=== PATIENT | male | born 1960 ===

== ENCOUNTER 2018-07-11 15:23 | Emergency (ER) | payer OTHER ==
[2018-07-11 15:38] VITALS: TEMP 98
[2018-07-11] MEDS ORDERED: Lidocaine 2% Inj (20ml) SC ONE (16:07)
[2018-07-11] MEDS ORDERED: Tdap Vaccine 0.5 ml Vial (10-64 yrs) IM ONE ×2 (16:10→17:12)
--- NOTE | 2018-07-11 16:11 | ED PDOC ---
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 Pt reports that he crushed his thumb under an instrument that hammers pieces of vehicles back together. (+) pain. Pt able to fully bend and extend at IP joint and MCP joint. Tetanus is unknown Past Medical History Reviewed: Nursing Documentation, Vital Signs Vital Signs: Last Vital Signs Temp 98.0 F 07/11/18 15:36 Pulse 101 H 07/11/18 15:36 Resp 20 07/11/18 15:36 BP 185/129 H 07/11/18 15:36 Pulse Ox 94 L 07/11/18 15:36 - Medical History PMH: No Chronic Diseases - Surgical History Surgical History: No Surg Hx - Family History Family History: States: No Known Family Hx - Living Arrangements Living Arrangements: With Family - Social History Ex-Smoker (has not smoked in the last 12 months): No Alcohol: Social Drugs: Denies - Immunization History Hx Tetanus Toxoid Vaccination: No Hx Influenza Vaccination: No Hx Pneumococcal Vaccination: No - Home Medications Home Medications: Ambulatory Orders Medication Instructions Recorded Cephalexin [cephalexin] 500 mg PO BID #14 07/11/18 oxyCODONE/Acetaminophen [Percocet 1 ea PO Q6 PRN #10 tab 07/11/18 5/325 mg Tab] - Allergies Allergies/Adverse Reactions: Allergies Allergy/AdvReac Type Severity Reaction Status Date / Time No Known Allergies Allergy Verified 07/11/18 15:37 Review of Systems ROS Statement: Except As Marked, All Systems Reviewed And Found Negative Musculoskeletal: Positive for: Other (finger crush injury) Skin: Positive for: Other (laceration) Physical Exam - Reviewed Nursing Documentation Reviewed: Yes Vital Signs Reviewed: Yes - Physical Exam Appears: Positive for: Well, Non-toxic, No Acute Distress Head Exam: Positive for: ATRAUMATIC, NORMAL INSPECTION, NORMOCEPHALIC Skin: Positive for: Normal Color, Warm, DRY Eye Exam: Positive for: EOMI, Normal appearance, PERRL ENT: Positive for: Normal ENT Inspection Neck: Positive for: Normal, Painless ROM Cardiovascular/Chest: Positive for: Regular Rate, Rhythm Respiratory: Positive for: CNT, Normal Breath Sounds Gastrointestinal/Abdominal: Positive for: Normal Exam, Soft Extremity: Positive for: Other (left thumb: (+) crush injury, (+) nail plate intact and above cuticle, skin macerated surrounding nail. (+) active bleed. ) Neurologic/Psych: Positive for: Alert, Oriented - Laboratory Results Result Diagrams: 07/11/18 17:12 07/11/18 17:12 - ECG O2 Sat by Pulse Oximetry: 94 Medical Decision Making Medical Decision Making: IV access established and treatment initiated with IV Ancef after Digital block applied for pain. XR: (+) Fracture noted Site irrigated by sba underwriter. case discussed with Hand on-call, Dr Zuñiga, who advised suture repaired to the laceration and bulky dressing on-top. Pt should contact office on Saturday for follow up. Pt made aware of plan and demonstrated full understanding. Disposition - Clinical Impression Clinical Impression: Crush injury, Finger fracture - Patient ED Disposition Is Patient to be Admitted: No - Disposition Referrals: Any Gasca MD [Staff Provider] - Disposition: Routine/Home Disposition Time: 18:38 Condition: STABLE Prescriptions: Cephalexin [cephalexin] 500 mg PO BID #14 oxyCODONE/Acetaminophen [Percocet 5/325 mg Tab] 1 ea PO Q6 PRN #10 tab PRN Reason: Pain, Severe (8-10) Instructions: Crush Injury (DC), Finger Fracture Forms: [facility] (Polish) Laceration - Laceration Repair No standard instances Wound Length (In cm): 5 Description Of Wound: Stellate, Contused Tissue, Contaminated With: (oil) Wound Cleansed With: Sterile Saline Anesthesia: Lidocaine 2% Wound Examination: Irrigated With Saline Wound Debridement/Revision: Wound Debrided Wound Closure: Suture Suture Technique And Material Used: Nylon (5-0) Wound Complexity: Complex
[2018-07-11] MEDS ORDERED: Lidocaine 2% Inj (20ml) ONE (16:13)
[2018-07-11 17:18] LABS: BASO # 0.1 K/uL (0.0-0.2); BASO % 0.7 % (0.0-2.0); EOS # 0.6 K/uL (0.0-0.7); EOS % 6.5 % (0.0-4.0); LYMPH # 1.4 K/uL (1.0-4.3); LYMPH % 16.6 % (20.0-40.0); MEAN CELL VOLUME 84.1 fl (80.0-94.0); MEAN CORPUSCULAR HEMOGLOBIN 28.7 pg (27.0-31.0); MEAN CORPUSCULAR HGB CONC 34.1 g/dL (33.0-37.0); MEAN PLATELET VOLUME 8.8 fl (7.2-11.7); MONO # 0.6 K/uL (0.0-0.8); MONO % 7.1 % (0.0-10.0); NEUT # 5.8 K/uL (1.8-7.0); NEUT % 69.1 % (50.0-75.0); NRBC % 0.1 % (0.0-0.0); RBC 5.59 Mil/uL (4.40-5.90); RED CELL DISTRIBUTION WIDTH 13.8 % (11.5-14.5); WHITE BLOOD COUNT 8.5 K/uL (4.8-10.8)
[2018-07-11 17:25] LABS: ALB/GLOB RATIO 1.3 (1.0-2.1); ALBUMIN 4.7 g/dL (3.5-5.0); ALT/SGPT 50 U/L (21-72); AST/SGOT 31 U/L (17-59); BLOOD UREA NITROGEN 13 mg/dl (9-20); CALCIUM 10.2 mg/dL (8.4-10.2); GFR NON-AFRICAN AMERICAN > 60
--- NOTE | 2018-07-11 17:51 | RAD ---
Date of service: 07/11/2018 PROCEDURE: Left Thumb radiographs. HISTORY: crush injury COMPARISON: None. TECHNIQUE: AP radiograph of the left hand, as well as spot oblique and lateral images of thumb were obtained. FINDINGS: LEFT THUMB: Complex fracture distal tuft left thumb consistent with history of crush injury. Remainder of the left hand (as seen on the AP view) grossly unremarkable. JOINTS: Normal. SOFT TISSUES: Soft tissue swelling at the site of the injury/fracture. No visualized radiopaque foreign body. OTHER FINDINGS: None. IMPRESSION: Acute, comminuted fracture distal tuft right. Soft tissue swelling attests to the acuity of the fracture.
[2018-07-11 18:48] VITALS: BP 133/73; PULSE 86; RESP 18; O2SAT 99
== END 2018-07-11 18:46 | disposition home or self-care (01) ==
LOC: H.ER 15:23
DX: S61.012A Laceration without foreign body of left thumb without damage to nail, initial encounter (principal); W23.0XXA Caught, crushed, jammed, or pinched between moving objects, initial encounter; Y99.0 Civilian activity done for income or pay